=== PATIENT | male | born 1950 | race Caucasian/White ===

== ENCOUNTER 2020-08-10 05:44 | Day surgery (SDC) | payer MEDICARE, OTHER ==
[~2020-08-10] VITALS: Ht 175.3 cm; Wt 80.7 kg
[~2020-08-10 05:44] MED LIST: AVAPRO150 MG PO; BAYER CHEWABLE81 MG PO; CALCIUM 600 +1 EAC3 PO; CO Q-1030 MG PO; FISH OIL 1,0001 CA1 PO; GARLIQUE PO; GINGKO BILOBA PO; HYDROCHLOROTH12.5 M1 PO; METAMUCIL PACKE1 PKT PO; NIASPAN500 MG PO; PROSCAR5 MG PO; [UNRECOGNIZED DRUG - OTHER] PO
[2020-08-10 06:08] LABS: BASOPHILS 0.8 % (0-2); HEMATOCRIT 44.8 % (42.0-54.0); LYMPHOCYTES 28.4 % (15-50); MCH 29.8 pg (26.0-34.0); MCHC 33.4 g/dL (31.0-37.0); MCV 89.1 fL (80.0-100.0); MEAN PLATELET VOLUME 7.4 fL (7.4-10.4); MONOCYTES 13.5 % (2-11); NEUTROPHILS 55.3 % (40-80); PLATELET COUNT 338 10x3/uL (130-400); RBC 5.03 10x6/uL (4.20-6.10); RDW 13.6 % (11.5-14.5); WBC 9.6 10x3/uL (4.8-10.8)
[2020-08-10 06:31] LABS: CALC OSMOLALITY 280 mosm/kg (275-300); CALCIUM 9.3 mg/dL (8.5-10.1); CHLORIDE - SERUM 102 mmol/L (98-107); CREATININE - SERUM 0.8 mg/dL (0.6-1.3); GLUCOSE 113 mg/dL (74-106); POTASSIUM - SERUM 3.4 mmol/L (3.5-5.1); SODIUM 140 mmol/L (136-145); UREA NITROGEN 16 mg/dL (7-18); eGFR NON AFRICAN AMERICAN > 90 mL/min (90-120)
[2020-08-10 07:24] VITALS: BP 138/73; Ht 175.3 cm; Wt 80.7 kg
[2020-08-10] MEDS ORDERED: HYDROCODON-ACE1 EA10 PO (09:11)
--- NOTE | 2020-08-10 11:19 | NUR ---
1050 PT STATES HE IS STARTING TO HURT AFTER AMBULATING TO BR AND BACK TO BED. PT RATES HIS PAIN A 5 OUT OF 10 AND WOULD LIKE TO BE MEDICATED WITH NORCO BEFORE DISCHARGE HOME.
--- NOTE | 2020-08-10 12:37 | NUR ---
1120 PT STATES HIS PAIN LEVEL IS DECREASING AND RATES THE PAIN A 2-3 OUT OF 10. 1122 IV DC'D. CATHETER TIP INTACT. NO BLEEDING,REDNESS OR SWELLING AT SITE. COBAN DRESSING APPLIED. 1125 DISCHARGE INSTRUCTIONS REVIEWED WITH PT AND HIS . QUESTIONS ANSWERED. BOTH VOICE UNDERSTANDING OF INSTRUCTIONS.
--- NOTE | 2020-08-11 11:56 | OP ---
PATIENT NAME: SOPHY MORA MEDICAL RECORD: [id number] :54 LOCATION:D.OPS ADMISSION DATE: SURGEON: KAYDEN JOHN MD DATE OF OPERATION: 08/10/2020 PREOPERATIVE DIAGNOSES: 1. Right inguinal hernia. 2. Ventral hernia. 3. Hypertension. 4. Hyperlipidemia. POSTOPERATIVE DIAGNOSES: 1. Right inguinal hernia. 2. Ventral hernia. 3. Hypertension. 4. Hyperlipidemia. PROCEDURES: 1. Right inguinal hernia repair with medium PHS mesh. 2. Ventral hernia repair. SURGEON: Kayden John MD REPORT OF PROCEDURE: The patient's abdomen was prepped and draped in sterile fashion. A semicircular incision was made on the inferior aspect of the umbilicus. Electrocautery was used to dissect through the subcutaneous tissues. We encountered a fat-containing hernia defect. We freed up the hernia sac from the fascia and measured out the defect at about 1 cm. We cleared off the fascial edges and then reapproximated these transversely with interrupted 0 Prolenes times 3. The umbilicus was then tacked down to the fascia using a single interrupted 3-0 Vicryl. The subcutaneous tissues were reapproximated with interrupted 3-0 Vicryl and the skin was closed with running subcutaneous 5-0 Monocryl. We infused 10 mL of 0.25% Marcaine plain to the surrounding tissues. We then approached the patient's right groin. An oblique incision was made above the inguinal ligament and electrocautery was used to dissect through the subcutaneous tissues to the external oblique fascia. This fascia was opened up to the external ring using electrocautery. The patient had 3 separate bundles of nerve tissue, which were all high ligated consistent with the ilioinguinal nerve. The spermatic cord was elevated and a Chasity was placed around it. As we dissected through the cremasteric fibers, we could see a large hernia sac present. This hernia sac was dissected free from the spermatic cord and then pushed back into the abdominal cavity. An opening was made in the inguinal floor and the preperitoneal space of Retzius was opened up in all directions. A medium PHS mesh was then inserted and sutured down on all 4 sides using multiple interrupted 0 Vicryls. The wound bed was irrigated out with normal saline. The external oblique fascia was closed with a running 2-0 Vicryl. Virginia's was closed with interrupted 3-0 Vicryl and the skin was closed with running subcutaneous 5-0 Monocryl. A 10 mL of 0.25% Marcaine with epinephrine was infused into the surrounding tissues and the 2 wounds were dressed appropriately. COMPLICATIONS: None. CONDITION: Stable. OPERATIVE REPORT [id number] SOPHY MORA ANESTHESIA: General endotracheal and local. BLOOD LOSS: Minimal. TRANSINT:[id number] Voice Confirmation ID: [id number] DOCUMENT ID: [id number] KAYDEN JOHN MD at 1156 CC: [id number] DICTATION DATE: 08/10/2015 ELEMENT BURNER: 08/10/20 1055 [facility] 08/10/20 [id number] [place] [address]
== END 2020-08-10 11:34 | disposition home or self-care (01) ==
LOC: D.OPS 05:44
PROVIDERS: Anesthesiology; ATTEND Surgery
DX: K40.90 Unilateral inguinal hernia, without obstruction or gangrene, not specified as recurrent (principal); K43.9 Ventral hernia without obstruction or gangrene; I10 Essential (primary) hypertension; E78.5 Hyperlipidemia, unspecified